=== PATIENT | female | born 1955 | race Caucasian/White ===

== ENCOUNTER 2019-05-07 06:25 | Emergency (ER) | payer OTHER ==
[~2019-05-07] VITALS: Ht 154.9 cm; Wt 124.7 kg
[~2019-05-07 06:25] MED LIST: CALAN SR 120MG120 MG PO; COZAAR100 MG PO; PEPCID40 MG PO
== END 2019-05-07 15:47 | disposition home or self-care (01) ==
LOC: ER 06:25
DX: N20.0 Calculus of kidney (principal); R10.32 Left lower quadrant pain

== ENCOUNTER 2019-07-06 07:42 | Outpatient (CLI) | payer OTHER | END 2019-07-06 07:46 | disposition home or self-care (01) | LOC: SONOGRAMA 07:42 | DX: E04.2 Nontoxic multinodular goiter (principal) ==

== ENCOUNTER 2019-08-09 16:04 | Emergency (ER) | payer OTHER ==
[~2019-08-09] VITALS: Ht 157.5 cm; Wt 122.5 kg
== END 2019-08-09 20:05 | disposition home or self-care (01) ==
LOC: ER 16:04
DX: M54.89 Other dorsalgia (principal); R00.2 Palpitations

== ENCOUNTER 2019-11-05 16:43 | Emergency (ER) | payer OTHER ==
[~2019-11-05] VITALS: Ht 160 cm; Wt 127.0 kg
== END 2019-11-05 22:33 | disposition home or self-care (01) ==
LOC: ER 16:43
DX: K29.60 Other gastritis without bleeding (principal)

== ENCOUNTER 2019-11-10 07:40 | Emergency (ER) | payer OTHER ==
[~2019-11-10] VITALS: Ht 160 cm; Wt 127.0 kg
[2019-11-10] MEDS ORDERED: CARAFATE1 GM PO (08:51)
== END 2019-11-10 09:13 | disposition home or self-care (01) ==
LOC: ER 07:40
DX: K29.70 Gastritis, unspecified, without bleeding (principal)

== ENCOUNTER 2019-11-19 14:43 | Emergency (ER) | payer OTHER ==
[~2019-11-19] VITALS: Ht 160 cm; Wt 127.0 kg
[~2019-11-19 14:43] MED LIST changes: +CARAFATE1 GM PO
[2019-11-19] MEDS ORDERED: CARAFATE1 GM PO (21:05)
== END 2019-11-19 21:28 | disposition home or self-care (01) ==
LOC: ER 14:43
DX: K29.60 Other gastritis without bleeding (principal)

== ENCOUNTER 2022-05-09 07:57 | Outpatient (CLI) | payer OTHER | END 2022-05-09 08:03 | disposition home or self-care (01) | LOC: TOM 07:57 | PROVIDERS: ATTEND Internal Medicine Gastroenterology | DX: Z12.11 Encounter for screening for malignant neoplasm of colon (principal); R19.5 Other fecal abnormalities; K57.30 Diverticulosis of large intestine without perforation or abscess without bleeding ==

== ENCOUNTER 2024-08-01 09:07 | Emergency (ER) | payer OTHER ==
[~2024-08-01] VITALS: Ht 162.6 cm; Wt 120.2 kg
[~2024-08-01 09:07] MED LIST changes: +CALAN SR120 MG; +COZAAR100 MG; +FLONASE16 GM NASAL; +MAALOX ADVANCE355 ML PO; +ROBAXIN500 MG PO; +VERELAN PM200 MG PO; +XARELTO20 MG PO
[2024-08-01] MEDS ORDERED: WARFARIN SODIUM5 MG PO (09:20)
[2024-08-01] MEDS ORDERED: DEXAMETHASONE SODIUM PHOSPHATE 4 MG/ML VIAL ONE (11:00)
[2024-08-01] MEDS ORDERED: DEXAMETHASONE SODIUM PHOSPHATE 4 MG/ML VIAL IM ONE (11:00)
== END 2024-08-01 12:30 ==
LOC: ER 09:09
DX: L50.8 Other urticaria (principal); Z88.8 Allergy status to other drugs, medicaments and biological substances; I10 Essential (primary) hypertension; I48.91 Unspecified atrial fibrillation
CPT/HCPCS: 96372; 99283; J1100

== ENCOUNTER 2024-11-08 12:30 | Emergency (ER) | payer OTHER ==
[~2024-11-08] VITALS: Ht 160 cm; Wt 113.4 kg
[~2024-11-08 12:30] MED LIST changes: +WARFARIN SODIUM5 MG PO
[2024-11-08] MEDS ORDERED: VERAPAMIL ER240 MG PO (13:24)
[2024-11-08] MEDS ORDERED: LOVENOX120 MG/0.8 SUBCUTANEO (13:25)
[2024-11-08 15:42] LABS: INR 1.1; PROTHROMBIN TIME 11.9 SECONDS (9.0-11.5)
[2024-11-08 15:46] LABS: HEMATOCRIT 40.4 % (36.0-45.00); HEMOGLOBIN 13.3 g/dL (12.0-15.00); MEAN CELL VOLUME 93.2 fL (80.00-100.00); MEAN CORPUSCULAR HEMOGLOBIN 30.8 pg (27.00-32.0); PLATELET COUNT 154 K/uL (150-450); RED BLOOD COUNT 4.33 M/uL (4.00-6.00)
== END 2024-11-08 18:37 | disposition home or self-care (01) ==
LOC: ER 12:33
PROVIDERS: General Practice
DX: R53.81 Other malaise (principal); T14.8XXA Other injury of unspecified body region, initial encounter; Z88.8 Allergy status to other drugs, medicaments and biological substances; Z88.9 Allergy status to unspecified drugs, medicaments and biological substances; Z91.041 Radiographic dye allergy status

== ENCOUNTER 2024-11-21 13:59 | Emergency (ER) | payer OTHER ==
[~2024-11-21] VITALS: Ht 157.5 cm; Wt 118.4 kg
[~2024-11-21 13:59] MED LIST changes: +LOVENOX120 MG/0.8 SUBCUTANEO; +VERAPAMIL ER240 MG PO
[2024-11-21] MEDS ORDERED: ELIQUIS5 MG PO (15:08)
[2024-11-21] MEDS ORDERED: CEFTRIAXONE SODIUM 1,000 MG VIAL IM ONE (16:30)
[2024-11-21] MEDS ORDERED: CEFTRIAXONE SODIUM 1,000 MG VIAL ONE (16:35)
[2024-11-21] MEDS ORDERED: METHYLPREDNISOLONE SOD SUCC 40 MG VIAL IV ONE (17:45)
[2024-11-21] MEDS ORDERED: DIPHENHYDRAMINE HCL 50 MG/ML VIAL 1ML IV ONE (17:45)
[2024-11-21 17:54] LABS: HEMATOCRIT 37.8 % (36.0-45.00); HEMOGLOBIN 12.6 g/dL (12.0-15.00); MEAN CELL VOLUME 92.2 fL (80.00-100.00); MEAN CORPUSCULAR HEMOGLOBIN 30.7 pg (27.00-32.0); MEAN CORPUSCULAR HGB CONC 33.3 g/dl (32.0-36.0); PLATELET COUNT 221 K/uL (150-450); RED BLOOD COUNT 4.09 M/uL (4.00-6.00); RED CELL DISTRIBUTION WIDTH 13.4 % (11.5-14.5)
[2024-11-21 18:04] LABS: INR 1.1; PARTIAL THROMBOPLASTIN TIME 29.9 SECONDS (22.0-34.0); PROTHROMBIN TIME 11.9 SECONDS (9.0-11.5)
[2024-11-21 18:27] LABS: ALBUMIN 3.6 gm/dL (3.4-5.0); BILIRUBIN TOTAL 0.94 mg/dL (0.3-1.2); CALCIUM 9.3 mg/dL (8.5-10.1); CREATININE SERUM 0.64 mg/dL (0.55-1.02); GFR 91.47; TOTAL PROTEIN 7.6 gm/dL (6.4-8.2)
[2024-11-21 18:33] LABS: C-REACTIVE PROTEIN 0.75 MG/DL (0.00-0.29); POTASSIUM 4.24 mEq/L (3.5-5.1)
[2024-11-21 18:47] LABS: ERYTHROCYTE SEDIMENTATION RATE 86 mm/hr
[2024-11-21] MEDS ORDERED: CEPHALEXIN750 MG PO (20:12)
[2024-11-21] MEDS ORDERED: PEPCID AC20 MG PO (20:12)
== END 2024-11-21 20:16 | disposition home or self-care (01) ==
LOC: ER 13:59
PROVIDERS: General Practice
DX: L02.818 Cutaneous abscess of other sites (principal); Z88.8 Allergy status to other drugs, medicaments and biological substances; K57.30 Diverticulosis of large intestine without perforation or abscess without bleeding; M19.90 Unspecified osteoarthritis, unspecified site; I49.8 Other specified cardiac arrhythmias; I10 Essential (primary) hypertension; H40.89 Other specified glaucoma; L08.9 Local infection of the skin and subcutaneous tissue, unspecified; N20.0 Calculus of kidney
CPT/HCPCS: 36415; 74177; 96372; 99284; J0696; Q9965

== ENCOUNTER 2024-12-06 14:27 | Emergency (ER) | payer OTHER ==
[~2024-12-06] VITALS: Ht 157.5 cm; Wt 118.4 kg
[~2024-12-06 14:27] MED LIST changes: +CEPHALEXIN750 MG PO; +ELIQUIS5 MG PO; +PEPCID AC20 MG PO
[2024-12-06] MEDS ORDERED: FAMOTIDINE/PF 20 MG/2 ML VIAL ONE (16:39)
[2024-12-06] MEDS ORDERED: FAMOTIDINE/PF 20 MG/2 ML VIAL IV ONE (16:45)
== END 2024-12-06 17:01 | disposition home or self-care (01) ==
LOC: ER 14:29
DX: R10.13 Epigastric pain (principal); R10.9 Unspecified abdominal pain; Z88.8 Allergy status to other drugs, medicaments and biological substances; Z88.9 Allergy status to unspecified drugs, medicaments and biological substances

== ENCOUNTER 2025-09-12 16:08 | Emergency (ER) | payer OTHER ==
[~2025-09-12] VITALS: Ht 157.5 cm; Wt 124.3 kg
[2025-09-12] MEDS ORDERED: VERAPAMIL ER240 MG (17:33)
[2025-09-12] MEDS ORDERED: XARELTO1 MG/1 ML (17:34)
[2025-09-12] MEDS ORDERED: FAMOtidine 10 MG/ML (4ML VIAL) IV PUSH ONE (17:45)
[2025-09-12] MEDS ORDERED: DIPHENHYDRAMINE HCL 50 MG/ML VIAL 1ML IM ONE (17:45)
[2025-09-12] MEDS ORDERED: DIPHENHYDRAMINE HCL 50 MG/ML VIAL 1ML ONE (19:41)
[2025-09-12] MEDS ORDERED: FAMOTIDINE/PF 20 MG/2 ML VIAL ONE (19:42)
== END 2025-09-12 21:20 | disposition home or self-care (01) ==
LOC: ER 16:09
DX: L29.89 Other pruritus (principal); Z88.8 Allergy status to other drugs, medicaments and biological substances; I48.91 Unspecified atrial fibrillation; M19.90 Unspecified osteoarthritis, unspecified site; I10 Essential (primary) hypertension; I25.10 Atherosclerotic heart disease of native coronary artery without angina pectoris
CPT/HCPCS: 96365; 96372; 99282; J1200; J3490